=== PATIENT | male | born 1985 | race Two or more races ===

== ENCOUNTER 2020-10-26 11:02 | Outpatient (AMBR) | payer MEDICARE, MEDICAID, SELFPAY ==
--- NOTE | 2020-10-05 14:33 | PT.OIERPT ---
PT OP Initial Eval Patient Information Visit Reasons: knee pain Medical Diagnosis: M15.11, M22.41, M23.351 Treatment Dx #1: R knee pain Start of Care: 10/05/20 Date of Onset: 2016 Initial Assessment Subjective Pt is 35 yr old male who presents to therapy with complaints of R knee pain worsening over the past 2 months. Increased pain with bending the knee, squatting, and bending. He is not working. He was taking steroids for 3 yrs starting in 2016 for Myelodysplastic syndromes which is when the pain started. PMH: B DELIA, MDS ca Imaging: with provider Pt goal: less R knee pain Objective R knee AROM: Flexion: 70 deg Extension: full Strength MMT: HS: 4-/5 Quads: 3+/5 limited by anterior knee pain Special testing: Positive: patella compression, step down testing Anterior drawer: negative Varus: moderate gapping McMurrays testing: test was limited by knee flexion pain TTP: moderate of lateral joint line Assessment Pt presents with patella compression and knee flexion sensitivity consistent with likely meniscus irritation and patellofemoral pain. Pt requires skilled therapy in order to decrease pain and improve ROM into flexion and has fair rehab potential. Short Term and Matzo Forming Machine Operator Goals 1. Independent with HEP 2. Improved knee flexion ROM to 100 deg 3. Improved quad and hamstring strength to 4/5 4. Improved ambulatory tolerance to community distances with symmetrical gait pattern. Treatment Plan 1. Manual therapy 2. Therex 3. Modalities as indicated, moist heat, ice, TENS Frequency and Duration 2x a week for 6 weeks Certification Dates: 10/05/20 to 01/04/21 Office Procedures PT Procedures PT Date of Service: 10/05/20 OP PT Eval Mod Complex 30 minutes: Yes
--- NOTE | 2020-10-10 13:35 | PT.ODAYNRPT ---
PT Outpatient Daily Note Date of Service: 10/10/20 OP Daily Note Visit Reasons: knee pain Outpatient Physical Therapy Treatment Date: 10/10/20 Subjective: Same as time of evaluation Objective: See F/S for therex MT: STM R lateral knee x5' with Graston Assessment: Good demonstration of therex today with low tissue irritability. Plan: Continue per POc Length of Time (minutes) of Treatment: 30 Minutes Office Procedures PT Procedures PT Date of Service: 10/05/20 OP PT Eval Mod Complex 30 minutes: Yes PT Procedures PT Date of Service: 10/10/20 Therapeutic Exercise 30 minutes: Yes
--- NOTE | 2020-10-13 13:14 | PT.ODAYNRPT ---
PT Outpatient Daily Note Date of Service: 10/13/20 OP Daily Note Pediatric or Adult Patient: Adult PT >13 Visit Reasons: knee pain Outpatient Physical Therapy Treatment Date: 10/13/20 Subjective: The knee felt better after manual therapy last visit. Objective: See F/S for therex MT: STM R lateral knee with flexbar, Chung tape R knee x10' Assessment: Good demonstration of therex today with low tissue irritability. Distal ITB is moderately TTP. Plan: Continue per POc Length of Time (minutes) of Treatment: 30 Minutes Office Procedures PT Procedures PT Date of Service: 10/05/20 OP PT Eval Mod Complex 30 minutes: Yes PT Procedures PT Date of Service: 10/10/20 Therapeutic Exercise 30 minutes: Yes PT Procedures PT Date of Service: 10/13/20 Therapeutic Exercise 15 minutes: Yes Manual Solutions Architect Consultant 15 minutes: Yes
--- NOTE | 2020-10-18 13:54 | PTNOTE_ITS ---
PT Outpatient Daily Note Date of Service: 10/18/20 OP Daily Note Pediatric or Adult Patient: Adult PT >13 Visit Reasons: knee pain Outpatient Physical Therapy Treatment Date: 10/18/20 Subjective: The knee felt better after tape on front of knee from last visit and he's still wearing it. Objective: See F/S for therex MT: STM R lateral knee with Graston x10' Assessment: Good demonstration of therex today with low tissue irritability. Distal ITB is moderately TTP. Plan: Continue per POc Length of Time (minutes) of Treatment: 30 Minutes Office Procedures PT Procedures PT Date of Service: 10/05/20 OP PT Eval Mod Complex 30 minutes: Yes PT Procedures PT Date of Service: 10/18/20 Therapeutic Exercise 15 minutes: Yes Manual Railroad Wheels And Axles Inspector 15 minutes: Yes PT Procedures PT Date of Service: 10/10/20 Therapeutic Exercise 30 minutes: Yes PT Procedures PT Date of Service: 10/13/20 Therapeutic Exercise 15 minutes: Yes Manual Railroad Wheels And Axles Inspector 15 minutes: Yes
--- NOTE | 2020-10-20 14:00 | PT.ODAYNRPT ---
PT Outpatient Daily Note Date of Service: 10/20/20 OP Daily Note Pediatric or Adult Patient: Adult PT >13 Visit Reasons: knee pain Outpatient Physical Therapy Treatment Date: 10/20/20 Subjective: The knee feels less pain for about one day and then pain returns. Objective: See F/S for therex MT: Toshia tape anterior knee x10' Assessment: Good demonstration of therex today with low tissue irritability. Distal ITB is moderately TTP. Plan: Continue per POc Length of Time (minutes) of Treatment: 30 Minutes Office Procedures PT Procedures PT Date of Service: 10/05/20 OP PT Eval Mod Complex 30 minutes: Yes PT Procedures PT Date of Service: 10/18/20 Therapeutic Exercise 15 minutes: Yes Manual Installation & Maintenance Executive 15 minutes: Yes PT Procedures PT Date of Service: 10/20/20 Therapeutic Exercise 15 minutes: Yes Manual Installation & Maintenance Executive 15 minutes: Yes PT Procedures PT Date of Service: 10/10/20 Therapeutic Exercise 30 minutes: Yes PT Procedures PT Date of Service: 10/13/20 Therapeutic Exercise 15 minutes: Yes Manual Installation & Maintenance Executive 15 minutes: Yes
--- NOTE | 2020-10-24 13:48 | PTNOTE_ITS ---
PT Outpatient Daily Note Date of Service: 10/24/20 OP Daily Note Pediatric or Adult Patient: Adult PT >13 Visit Reasons: knee pain Outpatient Physical Therapy Treatment Date: 10/24/20 Subjective: The knee feels less pain for about one day and then pain returns. Objective: See F/S for therex Assessment: Good demonstration of therex today with low tissue irritability. Plan: Continue per POc Length of Time (minutes) of Treatment: 30 Minutes Office Procedures PT Procedures PT Date of Service: 10/05/20 OP PT Eval Mod Complex 30 minutes: Yes PT Procedures PT Date of Service: 10/18/20 Therapeutic Exercise 15 minutes: Yes Manual Senior Oracle Soa Developer 15 minutes: Yes PT Procedures PT Date of Service: 10/20/20 Therapeutic Exercise 15 minutes: Yes Manual Senior [employer] Soa Developer 15 minutes: Yes PT Procedures PT Date of Service: 10/10/20 Therapeutic Exercise 30 minutes: Yes PT Procedures PT Date of Service: 10/13/20 Therapeutic Exercise 15 minutes: Yes Manual Senior [employer] Soa Developer 15 minutes: Yes PT Procedures PT Date of Service: 10/24/20 Therapeutic Exercise 30 minutes: Yes
--- NOTE | 2020-10-26 11:45 | PT.ODAYNRPT ---
PT Outpatient Daily Note Date of Service: 10/26/20 OP Daily Note Pediatric or Adult Patient: Adult PT >13 Visit Reasons: knee pain Outpatient Physical Therapy Treatment Date: 10/26/20 Subjective: The knee feels less pain for about one day and then pain returns. Objective: See F/S for therex MT; STM distal ITB x5' with flexbar Assessment: Good demonstration of therex today with low tissue irritability. Plan: Continue per POc Length of Time (minutes) of Treatment: 30 Minutes Office Procedures PT Procedures PT Date of Service: 10/05/20 OP PT Eval Mod Complex 30 minutes: Yes PT Procedures PT Date of Service: 10/18/20 Therapeutic Exercise 15 minutes: Yes Manual Office Auditor 15 minutes: Yes PT Procedures PT Date of Service: 10/20/20 Therapeutic Exercise 15 minutes: Yes Manual Office Auditor 15 minutes: Yes PT Procedures PT Date of Service: 10/26/20 Therapeutic Exercise 30 minutes: Yes PT Procedures PT Date of Service: 10/10/20 Therapeutic Exercise 30 minutes: Yes PT Procedures PT Date of Service: 10/13/20 Therapeutic Exercise 15 minutes: Yes Manual Office Auditor 15 minutes: Yes PT Procedures PT Date of Service: 10/24/20 Therapeutic Exercise 30 minutes: Yes
== END 2020-10-28 23:59 | disposition home or self-care (01) ==
PROVIDERS: PCP Internal Medicine; Referring Provider Internal Medicine; Visit Provider Internal Medicine
DX: M17.11 Unilateral primary osteoarthritis, right knee (principal); M22.41 Chondromalacia patellae, right knee; M25.562 Pain in left knee
CPT/HCPCS: 97110; 97140; 97162

== ENCOUNTER 2020-11-03 11:17 | Outpatient (AMBR) | payer MEDICARE, MEDICAID, SELFPAY ==
--- NOTE | 2020-11-01 15:14 | PTNOTE_ITS ---
PT Outpatient Daily Note Date of Service: 11/01/20 OP Daily Note Visit Reasons: knee pain Outpatient Physical Therapy Treatment Date: 11/01/20 Subjective: The tape helps the knee pain temporarily Objective: SEe f/S for therex MT: Toshia tape x10' to anterior knee Assessment: Temporary relief after therapy visits Plan: Continue per POC Length of Time (minutes) of Treatment: 30 Minutes Office Procedures PT Procedures PT Date of Service: 11/01/20 Therapeutic Exercise 15 minutes: Yes Manual Assistant Community Manager 15 minutes: Yes
--- NOTE | 2020-11-03 18:44 | PT.ODS1RPT ---
PT OP Progress/Discharge Note Date of Service: 11/03/20 Progress Note/DC Note Progress Note/Discharge Note: DC Note Patient Information Visit Reasons: knee pain Service Continue Service or Discharge: Discharge Discharge Date: 11/03/20 Status Subjective: Pt reports the R knee feels stronger than prior to therapy and is prepared to D/C as he has other surgeries to prepare for. He still has pain about the lateral knee and he points to distal ITB and joint line area. Objective: See f/S for therex MT: Toshia tape x10' anterior knee R knee AROM: Flexion: 80 deg R knee strength: Quads: 4/5 HS: 4/5 Gait: symmetrical pattern community distances Assessment: Pt has attended the evaluation and 8 Rx sessions with good progress to meet goals established at the evaluation. He has improved knee flexion ROM and quad strength and gait pattern is symmetrical. Knee flexion ROM is still limited and he has pain of lateral knee that has had temporary relief after manual therapy but pain returns. Plan: D/C to prepare for upcoming surgeries. Office Procedures PT Procedures PT Date of Service: 11/01/20 Therapeutic Exercise 15 minutes: Yes Manual Tank House Operator 15 minutes: Yes PT Procedures PT Date of Service: 11/03/20 Therapeutic Exercise 15 minutes: Yes Manual Tank House Operator 15 minutes: Yes
== END 2020-11-28 23:59 | disposition home or self-care (01) ==
PROVIDERS: PCP Internal Medicine; Referring Provider Internal Medicine; Visit Provider Internal Medicine
DX: M17.11 Unilateral primary osteoarthritis, right knee (principal); M25.561 Pain in right knee; M22.41 Chondromalacia patellae, right knee; M23.351 Other meniscus derangements, posterior horn of lateral meniscus, right knee; Z96.643 Presence of artificial hip joint, bilateral
CPT/HCPCS: 97110; 97140

== ENCOUNTER → 2024-07-03 | Outpatient (CLI) | payer MEDICARE, MEDICAID, SELFPAY ==
--- NOTE | 2024-07-03 10:45 | XR_ITS ---
Examination: Abdomen sonogram, complete Date and time of exam: July 03, 2024 1101 hours INDICATIONS: Elevated liver enzymes on laboratory examination performed one month ago, history bilateral lung transplant. Technique: Multiple real-time grayscale transabdominal sonographic images of the abdomen have been obtained. Findings: Normal gallbladder Normal common bile duct 0.2 cm Pancreatic head 2.9 cm Aorta not enlarged Liver 10.2 cm fatty infiltration irregular contour, scar formation throughout the right lobe the liver Normal hepatopedal portal venous flow Patent IVC Right kidney 9.1 x 4.8 x 4.5 cm cortex 1.8 cm Left kidney 9.2 x 4.9 x 4.1 cm cortex 1.7 cm Mild bilateral renal parenchymal scar formation No hydronephrosis Spleen 11.2 cm IMPRESSION: Normal gallbladder Normal common bile duct Fatty liver with irregular contour Mild bilateral renal parenchymal scar formation, no hydronephrosis
== END | disposition home or self-care (01) ==
LOC: CDIM 10:36
PROVIDERS: PCP Nurse Practitioner Family; Referring Provider Internal Medicine Gastroenterology; Visit Provider Internal Medicine Gastroenterology
DX: K76.0 Fatty (change of) liver, not elsewhere classified (principal); N28.89 Other specified disorders of kidney and ureter
CPT/HCPCS: 76700

== ENCOUNTER → 2024-07-28 | Outpatient (CLI) | payer MEDICARE, MEDICAID, SELFPAY ==
--- NOTE | 2024-07-28 14:47 | XR_ITS ---
Examination: PA lateral chest 2 views TECHNIQUE: Upright PA lateral chest 2 views Exam date and time: July 20, 2024 1533 hours INDICATIONS: Coughing beginning 3 days ago. FINDINGS: Mild prominence left ventricle Mediastinal surgical clips On the lateral view pneumonia obscuring detail posterior portion right hemidiaphragm No pulmonary edema IMPRESSION: Significant pneumonia right base posteriorly
[2024-07-28 17:52] LABS: Influenza A Ag Negative; Influenza B Ag Negative; Respiratory Syncytial Virus Ag Negative (Negative)
== END | disposition home or self-care (01) ==
LOC: CDIM 14:33 → COPL 15:43
PROVIDERS: PCP Nurse Practitioner Family; Referring Provider Nurse Practitioner Family; Visit Provider Radiology Diagnostic Radiology
DX: J18.9 Pneumonia, unspecified organism (principal); J21.1 Acute bronchiolitis due to human metapneumovirus; R05.9 Cough, unspecified
CPT/HCPCS: 71046; 87502; 87634